=== PATIENT | male | born 1945 | race Caucasian/White ===

== ENCOUNTER 2018-02-28 13:49 | Emergency (ER) | payer OTHER, SELFPAY ==
[2018-02-28] VITALS (10 sets, daily range): BP systolic 87–128; BP diastolic 52–73; PULSE 91–111; RESP 15–20; TEMP 36.4; O2SAT 94–100; BMI 23.0
--- NOTE | 2018-02-28 14:15 | DI.RAD.S_ITS ---
PROCEDURE: XR CHEST 1V INDICATIONS: chest pain TECHNIQUE: One view of the chest was acquired. COMPARISON: None. FINDINGS: Surgical changes and devices: None. Lungs and pleura: No pleural effusions or pneumothorax. Lungs are clear. Mediastinum: Mediastinal contours appear normal. Heart size is normal. Bones and chest wall: No suspicious bony lesions. Overlying soft tissues appear unremarkable. IMPRESSION: Normal for age, source of current symptoms is not seen. Dictated by: Brayan Dunham M.D. on 02/28/2018 at 14:57 Approved by: Baryan Dunham M.D. on 02/28/2018 at 14:57
[2018-02-28 14:24] LABS: Add Manual Diff / Slide Review NO; Basophils Percent Auto 1.1 % (0-2); Eosinophils Percent Auto 0.9 % (2-4); Hematocrit 44.7 % (41-53); Hemoglobin 15.2 g/dL (13.5-17.5); Lymphocytes Percent Auto 18.4 % (25-40); Mean Corpuscular Hemoglobin 29.3 PG (26-34); Mean Corpuscular Volume 86.3 fL (80-100); Monocytes Percent Auto 5.7 % (3-14); Neutrophils Absolute Auto 8600 /uL (1500-7000); Neutrophils Percent Auto 73.9 % (50-75); Platelet Count 255 X10^3/uL (150-400); Red Blood Cell Count 5.18 X10^6/uL (4.5-5.9); Red Cell Distribution Width 14.5 % (11.6-14.8); White Blood Cell Count 11.6 X10^3/uL (4.5-11.0)
[2018-02-28] MEDS: SODIUM CHLORIDE 0.9% 1,000 ML 1000 ML IV (14:25)
[2018-02-28 14:29] LABS: Prothrombin Time 11.1 SECONDS (10.1-12.7)
[2018-02-28] MEDS: dilTIAZem 5 MG/ML SDV 20 MG IV (14:30)
[2018-02-28 14:32] LABS: PTT Partial Thromboplastin Tim 29 SECONDS (26.4-36.2)
[2018-02-28] MEDS: ETOMIDATE 2 MG/ML VIAL 7 MG IV (14:42)
[2018-02-28 14:46] LABS: Alanine Aminotransferase 36 IU/L (21-72); Albumin 4.7 g/dL (3.5-5.0); Albumin Globulin Ratio 1.5 (1.0-2.8); Alkaline Phosphatase 64 U/L (38-126); Aspartate Aminotransferase 56 IU/L (17-59); BUN Creatinine Ratio 17.9 (6-22); Bilirubin Total 0.6 mg/dL (0.2-1.3); Blood Urea Nitrogen 34 mg/dL (9-20); Calcium 9.6 mg/dL (8.4-10.2); Carbon Dioxide 24 mmol/L (22-32); Chloride 103 mmol/L (98-107); Creatine Kinase 1181 U/L (55-170); Globulin 3.2 g/dL (1.7-4.1); Glucose 102 mg/dL (80-110); HEMOLYSIS 23 (0-50); Magnesium 1.8 mg/dL (1.6-2.3); Potassium 3.8 mmol/L (3.4-5.1); Sodium 140 mmol/L (137-145); Total Protein 7.9 g/dL (6.3-8.2)
--- NOTE | 2018-02-28 14:59 | ED_ITS ---
HPI - Dizziness General Chief Complaint: Dizziness Stated Complaint: DIZZY Time Seen by Provider: 02/28/18 14:07 Source: patient Mode of arrival: ambulatory Limitations: no limitations History of Present Illness HPI Narrative: Patient a beverly 73-year-old male in presenting with dizziness. He is found to be in AFib with RVR and hypotensive. He said it just started today he has never had any episodes before. He has no shortness of breath or chest pain he just feels very dizzy. He denies heart palpitations. He is visiting from [place]. Today he says that he chops wood. He denies any alcohol abuse he does not drink caffeine. Related Data Allergies Allergy/AdvReac Type Severity Reaction Status Date / Time Sulfa (Sulfonamide Allergy Severe Dizziness Verified 02/28/18 14:02 Antibiotics) Review of Systems Review of Systems GENERAL: Denies chills, fatigue, malaise, fever, sweats, travel HEENT: Denies sinus pain, ear pain, sore throat, difficulty swallowing, neck pain RESPIRATORY: Denies dyspnea, cough, wheezing, hemoptysis, sputum. CARDIOVASCULAR: Denies chest pain, palpitations, orthopnea, edema GASTROINTESTINAL: Denies nausea, vomiting, abdominal pain, diarrhea, constipation, melena. : Denies dysuria, frequency, incontinence, hematuria, urinary retention, flank pain. MUSCULOSKELETAL: Denies weakness, joint pain, or bony pain SKIN: No rash, no erythema, no pruritus NEUROLOGIC: + dizziness, see HPI no focal deficits no weakness numbness no tingling PSYCHIATRIC: No concerning psychosocial issues. 12 point review of systems is negative except for those stated above and HPI PFSH Medical History Hypertension (Acute) Social History Smoking Status: Former smoker alcohol intake: never additional social history: [place]iting from [place] of [place] Exam Initial Vital Signs Initial Vital Signs: Vital Signs Temperature 97.5 F L 02/28/18 13:55 Pulse Rate 111 H 02/28/18 13:55 Respiratory Rate 20 02/28/18 13:55 Blood Pressure 87/52 L 02/28/18 13:55 Pulse Oximetry 95 02/28/18 13:55 GENERAL: Alert very pleasant very nice elderly male no acute distress HEENT: Head atraumatic,EOMI, pupils reactive,] CARDIOVASCULAR: Irregularly irregular tachycardic no murmurs RESPIRATORY: Breath sounds equal bilaterally, no wheezes rales or rhonchi. ABDOMEN: Soft, nontender. Normoactive bowel sounds all 4 quadrants. No guarding or rebound. EXTREMITIES: Normal range of motion, no clubbing or edema. Neurovascularly intact NEUROLOGICAL: Alert and oriented x4.Normal gait and speech. Cranial nerves II through XII grossly intact. SKIN: Warm, dry, no laceration, no petechiae, no rashes or lesions. Procedures Cardioversion Cardiac rhythm prior to cardioversion: AFib with RVR Stability: Unstable Presedation Evaluation: Blood pressure 87/52 ASA Class: I Mallampati Airway Classification: Class I Time of Last PO Intake: 12:00 Preparation: refrigerator crater applied, pulse oximeter, capnometry used and supplemental O2 applied IV Etomidate Dose (mgs): 7 Joules used: 150 ED Sedation Level: Moderate (Concious) Cardiac rhythm post-cardioversion: Normal sinus rhythm Patient tolerated procedure sedation: Well Complications sedation: none Procedural Sedation Patient Age: Patient is 5yrs or older Indication: other (Unstable AFib with RVR) ASA Class: I Mallampati Airway Classification: Class I Time of Last PO Intake: 12:00 Preparation: refrigerator crater applied, pulse oximeter, capnometry used, supplemental O2 applied, suction/airway equipment at bedside and IV secured IV Etomidate dose (mg): 7 Time of Sedation (Min): 15 ED Sedation Level: Moderate (Concious) Patient Tolerated Procedure: Well Complications: none Scores CHADS-VASc Congestive heart failure: no Hypertension: yes Age 75 years or older: no Diabetes mellitus: no Stroke, TIA, or TE: no Vascular disease: no Age 65 to 74 years: yes Sex category (female): Male CHADS-VASc Score: 2 Course Orders Ordered: ED Orders 02/28/18 14:15 XR chest 1V Stat Complete Blood Count AUTO DIFF Stat Comprehensive Metabolic Panel Stat Magnesium Stat Partial Thromboplastin Time Stat Prothrombin Time INR Stat Thyroid Stimulating Hormone Stat Troponin & CK Cardiac Panel Stat EKG-12 Lead Stat Discontinued Medications Aspirin (Aspirin Chew) 324 mg PO NOW ONE Stop: 02/28/18 14:16 Last Admin: 02/28/18 15:10 Dose: 324 mg Diltiazem HCl (Cardizem) 20 mg IV NOW ONE Stop: 02/28/18 14:16 Last Admin: 02/28/18 14:30 Dose: 20 mg Etomidate (Amidate) 7 mg IV NOW ONE Stop: 02/28/18 14:36 Last Admin: 02/28/18 14:42 Dose: 7 mg Sodium Chloride (Normal Saline 0.9%) 1,000 mls @ 1,000 mls/hr IV CONT JEROME Last Infusion: 02/28/18 15:53 Dose: 0 mls/hr Admin: 02/28/18 14:25 Dose: 1,000 mls/hr Vital Signs - 8 hr 02/28/18 13:55 02/28/18 14:45 02/28/18 14:50 Temperature 97.5 F L Pulse Rate 111 H 101 H 93 H Respiratory Rate 20 17 15 Blood Pressure 87/52 L Blood Pressure [Right Arm] 100/63 120/66 Pulse Oximetry 95 100 100 02/28/18 14:55 02/28/18 15:00 02/28/18 15:03 Temperature Pulse Rate 92 H 96 H 102 H Respiratory Rate 19 19 16 Blood Pressure Blood Pressure [Right Arm] 117/68 128/69 Pulse Oximetry 100 97 02/28/18 15:05 02/28/18 15:10 02/28/18 15:15 Temperature Pulse Rate 94 H 94 H 96 H Respiratory Rate 15 17 20 Blood Pressure Blood Pressure [Right Arm] 114/60 109/67 118/73 Pulse Oximetry 97 94 96 02/28/18 15:52 Temperature Pulse Rate 91 H Respiratory Rate 15 Blood Pressure Blood Pressure [Right Arm] 103/69 Pulse Oximetry 97 MDM - Dizziness Lab Data Attestation: I reviewed the patient's lab results. Result diagrams: 02/28/18 14:15 02/28/18 14:15 Lab Results 02/28/18 02/28/18 02/28/18 Range/Units 14:15 14:15 14:15 WBC 11.6 H (4.5-11.0) X10^3/uL RBC 5.18 (4.5-5.9) X10^6/uL Hgb 15.2 (13.5-17.5) g/dL Hct 44.7 (41-53) % MCV 86.3 (80-100) fL MCH 29.3 (26-34) PG MCHC 34.0 (30-36) % RDW 14.5 (11.6-14.8) % Plt Count 255 (150-400) X10^3/uL Neut % (Auto) 73.9 (50-75) % Lymph % (Auto) 18.4 L (25-40) % [place] % (Auto) 5.7 (3-14) % Eos % (Auto) 0.9 L (2-4) % Baso % (Auto) 1.1 (0-2) % Neut # (Auto) 8600 H (0102-8751) /uL PT 11.1 (10.1-12.7) SECONDS INR 1.0 (0.9-1.3) APTT 29 (26.4-36.2) SECONDS Sodium 140 (137-145) mmol/L Potassium 3.8 (3.4-5.1) mmol/L Chloride 103 (98-107) mmol/L Carbon Dioxide 24 (22-32) mmol/L BUN 34 H (9-20) mg/dL Creatinine 1.90 H (0.66-1.25) mg/dL Estimated GFR 35.0 L (>60) mL/min BUN/Creatinine Ratio 17.9 (6-22) Glucose 102 (80-110) mg/dL Calcium 9.6 (8.4-10.2) mg/dL Magnesium 1.8 (1.6-2.3) mg/dL Total Bilirubin 0.6 (0.2-1.3) mg/dL AST 56 (17-59) IU/L ALT 36 (21-72) IU/L Alkaline Phosphatase 64 (38-126) U/L Total Creatine Kinase 1181 H (55-170) U/L CK-MB (CK-2) 22.50 H (<2.37) ng/mL CK-MB (CK-2) Rel Index 1.9 (1.5-5.0) % Troponin I < 0.012 (0.01-0.034) ng/mL Total Protein 7.9 (6.3-8.2) g/dL Albumin 4.7 (3.5-5.0) g/dL Globulin 3.2 (1.7-4.1) g/dL Albumin/Globulin Ratio 1.5 (1.0-2.8) TSH (0.47-4.68) uIU/mL 02/28/ Range/Units 14:15 WBC (4.5-11.0) X10^3/uL RBC (4.5-5.9) X10^6/uL Hgb (13.5-17.5) g/dL Hct (41-53) % MCV (80-100) fL MCH (26-34) PG MCHC (30-36) % RDW (11.6-14.8) % Plt Count (150-400) X10^3/uL Neut % (Auto) (50-75) % Lymph % (Auto) (25-40) % [place] % (Auto) (3-14) % Eos % (Auto) (2-4) % Baso % (Auto) (0-2) % Neut # (Auto) (1588-5892) /uL PT (10.1-12.7) SECONDS INR (0.9-1.3) APTT (26.4-36.2) SECONDS Sodium (137-145) mmol/L Potassium (3.4-5.1) mmol/L Chloride (98-107) mmol/L Carbon Dioxide (22-32) mmol/L BUN (9-20) mg/dL Creatinine (0.66-1.25) mg/dL Estimated GFR (>60) mL/min BUN/Creatinine Ratio (6-22) Glucose (80-110) mg/dL Calcium (8.4-10.2) mg/dL Magnesium (1.6-2.3) mg/dL Total Bilirubin (0.2-1.3) mg/dL AST (17-59) IU/L ALT (21-72) IU/L Alkaline Phosphatase (38-126) U/L Total Creatine Kinase (55-170) U/L CK-MB (CK-2) (<2.37) ng/mL CK-MB (CK-2) Rel Index (1.5-5.0) % Troponin I (0.01-0.034) ng/mL Total Protein (6.3-8.2) g/dL Albumin (3.5-5.0) g/dL Globulin (1.7-4.1) g/dL Albumin/Globulin Ratio (1.0-2.8) TSH 2.07 (0.47-4.68) uIU/mL Imaging Data Chest x-ray: Radiologist's impression: PROCEDURE: XR CHEST 1V INDICATIONS: chest pain TECHNIQUE: One view of the chest was acquired. COMPARISON: None. FINDINGS: Surgical changes and devices: None. Lungs and pleura: No pleural effusions or pneumothorax. Lungs are clear. Mediastinum: Mediastinal contours appear normal. Heart size is normal. Bones and chest wall: No suspicious bony lesions. Overlying soft tissues appear unremarkable. IMPRESSION: Normal for age, source of current symptoms is not seen. Dictated by: Brayan Dunham M.D. on 02/28/2018 at 14:57 ECG Data Attestation: I personally reviewed and interpreted this ECG as follows: Prior ECG tracings: not available for review Interpretation: EKG 1. AFib with RVR rate [address] changes no priors to compare EKG 2. Normal sinus rhythm rate [address] changes no T-wave inversions appear interval 185 MDM Narrative Medical decision making narrative: The patient was given small doses of Cardizem. He remained in AFib with RVR blood pressure improved very minimally and remained with a systolic under 100. Decision for cardioversion. Discussed risks and benefits with family. Consent signed in the chart. The patient is leaving back to [place] on Monday. He does have a PCP. Discussed risk of stroke with new onset AFib. Recommended aspirin daily. I discussed all findings with the patient and spouse, Education has been performed regarding treatment plan, diagnosis, warning signs and symptoms and all concerns have been addressed. Verbally agree with and understood all of the above. Discharge Plan Departure Patient Disposition: Home Clinical Impression: Atrial fibrillation with RVR Discharge Date/Time: 02/28/18 15:54 Interventions: ED Discharge Assessment Last Done: 02/28/18 15:54 Instructions: Atrial Fibrillation Activity Restrictions/Additional Instructions: *You have been diagnosed with atrial fibrillation with rapid ventricular rate *What to do: No strenuous activity. He will likely need further workup with her primary care physician in [place] *Continue to take medications as directed Aspirin 81 mg once a day to help prevent strokes *Follow up with your primary care provider in 2-3 days *Return to [facility] if you should have dizziness lightheadedness passing out heart palpitations shortness of breath chest pain or any new, worsening or concerning symptoms
[2018-02-28 15:01] LABS: Troponin I < 0.012 ng/mL (0.01-0.034)
[2018-02-28 15:02] LABS: CKMB % Relative Index 1.9 % (1.5-5.0)
[2018-02-28] MEDS: ASPIRIN 81 MG TAB 324 MG PO (15:10)
[2018-02-28 15:17] LABS: Thyroid Stimulating Hormone 2.07 uIU/mL (0.47-4.68)
== END 2018-02-28 15:54 | disposition home or self-care (01) ==
PROVIDERS: Emergency Provider Emergency Medicine
DX: I48.91 Unspecified atrial fibrillation (principal)
CPT/HCPCS: 36591; 71045; 80053; 82550; 82553; 83735; 84443; 84484; 85025; 85610; 85730; 92960; 93005; 94770; 96361; 96374; 99152; 99284; 99285